=== PATIENT | male | born 1965 | race African-American/Black ===

== ENCOUNTER 2021-12-17 04:52 | Emergency (ER) | payer MEDICAID, MEDICARE ==
[~2021-12-17] VITALS: Ht 175.3 cm; Wt 90.7 kg
[~2021-12-17 04:52] MED LIST: AMLO-496; ATOR40TA52; ATOR40TA52 PO; METF-372; OME40GT
[2021-12-17 06:19] VITALS: BP 125/78
[2021-12-17 06:39] LABS: Urine Bacteria NONE SEEN /hpf (None Seen); Urine Blood 3+ /uL (Negative); Urine Budding Yeast FEW /hpf (None Seen); Urine Hyaline Cast FEW /lpf (0 - 2); Urine Mucus FEW (None Seen); Urine Specific Gravity 1.022 (1.001-1.035); Urine WBC 3 /hpf (0 - 3)
[2021-12-17] MEDS ORDERED: TAM04C PO (06:53)
== END 2021-12-17 07:28 | disposition home or self-care (01) ==
LOC: EDUNIT# 04:52 → EDBD 04:52 → ER 04:52
DX: R33.9 Retention of urine, unspecified (principal); I10 Essential (primary) hypertension; E11.9 Type 2 diabetes mellitus without complications; E78.5 Hyperlipidemia, unspecified; Z79.899 Other long term (current) drug therapy; Z88.8 Allergy status to other drugs, medicaments and biological substances
CPT/HCPCS: 51702; 81001

== ENCOUNTER 2022-11-27 08:36 | Inpatient (IN) | payer MEDICARE, OTHER ==
[~2022-11-27] VITALS: Ht 175.3 cm; Wt 98.6 kg
[~2022-11-27 08:36] MED LIST changes: +TAM04C PO
[2022-11-27 09:28] LABS: Basophils # (auto) 0.1 10 ^3/uL (0-0.2); Basophils % (auto) 1.5 % (0.0-2.0); Eosinophils # (auto) 0.3 10 ^3/uL (0-0.8); Eosinophils % (auto) 4.8 % (0.0-7.0); Hematocrit 39.6 % (41.0-53.0); Lymphocytes % (auto) 32.8 % (10.0-50.0); Mean Corpuscular Hemoglobin 27.7 pg (28.0-32.0); Mean Corpuscular Hgb Conc. 32.8 g/dL (32.0-36.0); Mean Corpuscular Volume 84.4 fL (80.0-100.0); Monocytes # (auto) 0.6 10 ^3/uL (0-1.3); Monocytes % (auto) 9.1 % (0.0-12.0); Neutrophils # (auto) 3.1 10 ^3/uL (1.6-8.6); Neutrophils % (auto) 51.8 % (37.0-80.0); Nucleated Red Blood Cells % 0.2 %; Red Blood Cells 4.68 10^6/uL (4.5-5.90); Red Cell Distribution Width 12.8 % (11.8-14.3); White Blood Cell 6.1 10^3/uL (4.4-10.8)
[2022-11-27 09:49] LABS: INR 0.95 (0.9-1.15); Partial Thromboplastin Time 33.4 sec (24.6-33.4)
[2022-11-27 09:59] LABS: Albumin 3.8 g/dL (3.4-5.0); Calcium 8.8 mg/dL (8.5-10.1); Potassium 3.7 mmol/L (3.5-5.1)
[2022-11-27 10:03] LABS: BUN/Creatinine Ratio 13.2; Bilirubin, Total 0.8 mg/dL (0.2-1.0); Total Protein 8.5 g/dL (6.4-8.2)
[2022-11-27 10:45] LABS: Urine Bacteria NONE SEEN /hpf (None Seen); Urine Blood Negative /uL (Negative); Urine Mucus FEW (None Seen); Urine Specific Gravity 1.028 (1.001-1.035); Urine WBC <1 /hpf (0 - 3)
[2022-11-27] MEDS ORDERED: cloNIDine HCL 0.1 MG TAB PO ONE (13:45)
[2022-11-27] MEDS ORDERED: LISINOPRIL 20 MG TAB PO ONE (15:15)
[2022-11-27] MEDS ORDERED: hydrALAZINE HCL 20 MG/ML VL IV PRN (15:15)
[2022-11-27] MEDS ORDERED: hydrALAZINE HCL 20 MG/ML VL IV ONE (15:15)
[2022-11-27] MEDS ORDERED: LOSARTAN POTASSIUM 25 MG TAB PO ONE (16:15)
[2022-11-27] MEDS ORDERED: ONDANSETRON HCL 4 MG/2 ML VIAL IV PRN (16:30)
[2022-11-27] MEDS ORDERED: NITROGLYCERIN 0.4 MG SL TAB SL PRN (16:30)
[2022-11-27] MEDS ORDERED: ACETAMINOPHEN 325 MG TAB PO PRN (16:30)
[2022-11-27] MEDS ORDERED: MORPHINE SULFATE INJ 2 MG/ml SYRG IV PRN ×2 (16:30)
[2022-11-27] MEDS ORDERED: DEXTROSE (50%) 50ML SYRG IV PRN ×2 (16:45)
[2022-11-27] MEDS: InsuLIN REG 1unit/0.01ml Soln (100units/ml) SC SCH ×4 (17:00→23:53)
[2022-11-27] MEDS: ACCU-CHEK COMFORT CURVE STRIP VI SCH ×4 (17:12→23:53)
[2022-11-27 17:13] LABS: Cholesterol 178 mg/dL (< 200)
[2022-11-27 17:14] LABS: INR 0.98 (0.9-1.15); Partial Thromboplastin Time 33.9 sec (24.6-33.4)
[2022-11-27 17:16] LABS: HDL Cholesterol 42 mg/dL (40-59); LDL Cholesterol 118 mg/dL (< 100); Triglycerides 146 mg/dL (< 150)
[2022-11-27 18:12] LABS: Alcohol, Urine < 3.0 mg/dL (0-10); Amphetamine Screen, Urine NEGATIVE (NEGATIVE); Barbiturate Scree,Urine NEGATIVE (NEGATIVE); Benzodiazephine Screen, Urine NEGATIVE (NEGATIVE); Cannabinoid Screen, Urine NEGATIVE (NEGATIVE); Cocaine Screen, Urine NEGATIVE (NEGATIVE); Opiate Scree,Urine NEGATIVE (NEGATIVE); Phencyclidine Screen, Urine NEGATIVE (NEGATIVE)
[2022-11-27] MEDS: HYDROcodone-ACET 5/325MG TAB PO PRN (21:07)
[2022-11-28] MEDS: hydrALAZINE HCL 20 MG/ML VL IV PRN ×2 (00:21→08:14)
[2022-11-28 05:22] LABS: Basophils # (auto) 0.1 10 ^3/uL (0-0.2); Basophils % (auto) 1.2 % (0.0-2.0); Eosinophils # (auto) 0.3 10 ^3/uL (0-0.8); Eosinophils % (auto) 4.9 % (0.0-7.0); Hematocrit 34.8 % (41.0-53.0); Hemoglobin 11.9 g/dL (13.5-17.5); Lymphocytes # (auto) 2.7 10 ^3/uL (0.4-5.4); Lymphocytes % (auto) 43.2 % (10.0-50.0); Mean Corpuscular Hemoglobin 28.8 pg (28.0-32.0); Mean Corpuscular Hgb Conc. 34.2 g/dL (32.0-36.0); Mean Corpuscular Volume 84.3 fL (80.0-100.0); Monocytes # (auto) 0.4 10 ^3/uL (0-1.3); Monocytes % (auto) 7.1 % (0.0-12.0); Neutrophils # (auto) 2.7 10 ^3/uL (1.6-8.6); Neutrophils % (auto) 43.6 % (37.0-80.0); Nucleated Red Blood Cells % 0.2 %; Red Blood Cells 4.13 10^6/uL (4.5-5.90); Red Cell Distribution Width 13.2 % (11.8-14.3); White Blood Cell 6.3 10^3/uL (4.4-10.8)
[2022-11-28 05:51] LABS: Potassium 3.5 mmol/L (3.5-5.1)
[2022-11-28] MEDS: ACCU-CHEK COMFORT CURVE STRIP VI SCH ×7 (05:54→22:00)
[2022-11-28] MEDS: InsuLIN REG 1unit/0.01ml Soln (100units/ml) SC SCH ×6 (05:54→22:00)
[2022-11-28 06:00] LABS: Albumin 3.2 g/dL (3.4-5.0); BUN/Creatinine Ratio 14.6; Bilirubin, Total 0.6 mg/dL (0.2-1.0); Calcium 8.4 mg/dL (8.5-10.1); Total Protein 7.2 g/dL (6.4-8.2)
[2022-11-28] MEDS: NICOTINE 7MG/24HR TOPICAL PATCH TD SCH (09:26)
[2022-11-28] MEDS: LOSARTAN POTASSIUM 25 MG TAB PO SCH (09:30)
[2022-11-28] MEDS: PANTOPRAZOLE 40 MG/10 ML VIAL INJ IV SCH (09:30)
[2022-11-28] MEDS: amLODIPine BESYLATE 5 MG TAB PO SCH (09:31)
[2022-11-28] MEDS ORDERED: LISINOPRIL 20 MG TAB PO SCH (10:00)
[2022-11-28] MEDS: LACTULOSE 20Gm/30ML SOLN PO SCH (10:34)
[2022-11-28] MEDS: DOCUSATE SOD 100 MG CAP PO SCH ×2 (10:34→23:13)
[2022-11-28] MEDS ORDERED: HCTZ 25 MG TAB PO ONE (11:15)
[2022-11-28] MEDS ORDERED: cloNIDine HCL 0.1 MG TAB PO ONE (16:15)
[2022-11-28] MEDS: cloNIDine HCL 0.1 MG TAB PO PRN (23:13)
[2022-11-29] VITALS (8 sets, daily range): BP systolic 123–186; BP diastolic 73–119
[2022-11-29 05:47] LABS: Basophils # (auto) 0.1 10 ^3/uL (0-0.2); Basophils % (auto) 1.3 % (0.0-2.0); Eosinophils # (auto) 0.3 10 ^3/uL (0-0.8); Eosinophils % (auto) 5.4 % (0.0-7.0); Hemoglobin 12.9 g/dL (13.5-17.5); Lymphocytes # (auto) 2.3 10 ^3/uL (0.4-5.4); Lymphocytes % (auto) 40.1 % (10.0-50.0); Mean Corpuscular Hemoglobin 29.3 pg (28.0-32.0); Mean Corpuscular Hgb Conc. 34.8 g/dL (32.0-36.0); Mean Corpuscular Volume 84.1 fL (80.0-100.0); Monocytes # (auto) 0.5 10 ^3/uL (0-1.3); Monocytes % (auto) 8.3 % (0.0-12.0); Neutrophils # (auto) 2.6 10 ^3/uL (1.6-8.6); Neutrophils % (auto) 44.9 % (37.0-80.0); Nucleated Red Blood Cells % 0.2 %; Red Cell Distribution Width 12.9 % (11.8-14.3); White Blood Cell 5.8 10^3/uL (4.4-10.8)
[2022-11-29] MEDS: ACCU-CHEK COMFORT CURVE STRIP VI SCH ×5 (05:50→21:49)
[2022-11-29] MEDS: InsuLIN REG 1unit/0.01ml Soln (100units/ml) SC SCH ×4 (05:50→21:48)
[2022-11-29 06:15] LABS: Potassium 3.9 mmol/L (3.5-5.1)
[2022-11-29 06:22] LABS: Albumin 3.4 g/dL (3.4-5.0); BUN/Creatinine Ratio 10.6 (10.0-20.0); Bilirubin, Total 0.8 mg/dL (0.2-1.0); Calcium 8.9 mg/dL (8.5-10.1); Magnesium 2.3 mg/dL (1.6-2.6); Total Protein 7.9 g/dL (6.4-8.2)
[2022-11-29] MEDS ORDERED: HCTZ 25 MG TAB PO SCH (10:00)
[2022-11-29] MEDS: PANTOPRAZOLE 40 MG/10 ML VIAL INJ IV SCH (11:08)
[2022-11-29] MEDS: hydrALAZINE HCL 20 MG/ML VL IV PRN ×2 (11:08→18:35)
[2022-11-29] MEDS: DOCUSATE SOD 100 MG CAP PO SCH ×2 (11:09→21:48)
[2022-11-29] MEDS: LOSARTAN POTASSIUM 25 MG TAB PO SCH (11:10)
[2022-11-29] MEDS: amLODIPine BESYLATE 5 MG TAB PO SCH (11:10)
[2022-11-29] MEDS: LACTULOSE 20Gm/30ML SOLN PO SCH (11:11)
[2022-11-29] MEDS: NICOTINE 7MG/24HR TOPICAL PATCH TD SCH (11:18)
[2022-11-29] MEDS: cloNIDine HCL 0.1 MG TAB PO PRN (13:39)
[2022-11-29] MEDS ORDERED: LABETALOL HCL 200 MG TAB PO ONE (14:30)
[2022-11-29] MEDS ORDERED: HCTZ 25 MG TAB PO ONE (14:30)
[2022-11-29] MEDS ORDERED: LOSARTAN POTASSIUM 50 MG TAB PO ONE (14:30)
[2022-11-29] MEDS: LABETALOL HCL 200 MG TAB PO SCH (21:48)
[2022-11-29] MEDS: HYDROcodone-ACET 5/325MG TAB PO PRN (23:44)
[2022-11-30 05:00] VITALS: BP 126/79
[2022-11-30] MEDS: ACCU-CHEK COMFORT CURVE STRIP VI SCH ×2 (06:08→11:30)
[2022-11-30] MEDS: InsuLIN REG 1unit/0.01ml Soln (100units/ml) SC SCH ×2 (06:08→11:30)
[2022-11-30 06:14] LABS: BUN/Creatinine Ratio 13.5 (10.0-20.0); Calcium 9.2 mg/dL (8.5-10.1); Potassium 3.7 mmol/L (3.5-5.1)
[2022-11-30 09:09] VITALS: BP 159/97
[2022-11-30] MEDS: PANTOPRAZOLE 40 MG/10 ML VIAL INJ IV SCH (09:39)
[2022-11-30] MEDS: DOCUSATE SOD 100 MG CAP PO SCH (09:40)
[2022-11-30] MEDS: LABETALOL HCL 200 MG TAB PO SCH (09:41)
[2022-11-30] MEDS: NICOTINE 7MG/24HR TOPICAL PATCH TD SCH (09:42)
[2022-11-30] MEDS: amLODIPine BESYLATE 5 MG TAB PO SCH (09:42)
[2022-11-30] MEDS: LACTULOSE 20Gm/30ML SOLN PO SCH (09:48)
[2022-11-30] MEDS ORDERED: HCTZ 25 MG TAB PO SCH (10:00)
[2022-11-30] MEDS ORDERED: LOSARTAN POTASSIUM 25 MG TAB PO SCH (10:00)
[2022-11-30] MEDS ORDERED: LOS25T PO (10:02)
[2022-11-30] MEDS ORDERED: AML5T PO (10:02)
[2022-11-30] MEDS ORDERED: LABE200T6 PO (10:02)
[2022-11-30] MEDS ORDERED: HYDR25TA5 PO (10:02)
[2022-11-30 11:57] VITALS: BP 143/97
== END 2022-11-30 12:40 | disposition home or self-care (01) | DRG 305 ==
LOC: ER 08:36 → TELE 16:28 → TELE-CENTR 11-28 21:05
PROVIDERS: ADMIT Registered Nurse; ATTEND Internal Medicine
DX: I16.0 Hypertensive urgency (principal); E11.9 Type 2 diabetes mellitus without complications; E66.01 Morbid (severe) obesity due to excess calories; E78.5 Hyperlipidemia, unspecified; Z20.822 Contact with and (suspected) exposure to COVID-19; F17.210 Nicotine dependence, cigarettes, uncomplicated; I10 Essential (primary) hypertension; Z68.32 Body mass index [BMI] 32.0-32.9, adult; Z91.041 Radiographic dye allergy status; Z71.6 Tobacco abuse counseling; Z71.3 Dietary counseling and surveillance
CPT/HCPCS: 36415; 70450; 74176; 80048; 80053; 80061; 80307; 81001; 82378; 82962; 83036; 83735; 84443; 85025; 85610; 85730; 86850; 86900; 86901; 87426; 93005; C9113; G0378